=== PATIENT | male | born 1960 | race Caucasian/White ===

== ENCOUNTER 2016-07-24 19:47 | Observation (INO) | payer OTHER ==
[~2016-07-24] VITALS: Ht 180.3 cm; Wt 96.0 kg
[~2016-07-24 19:47] MED LIST: ACETAMINOPHEN500 MG PO; ADVAIR 250/501 DISK IH; ADVAIR HFA120 INHALA IH; ALL DAY ALLERGY10 M2 PO; ANTIFUNGAL15 G1 TP; ASMANEX TW200 MICRO1 IH; ASMANEX TW200 MICROG IH; ASPIR 8181 M1 PO; ASPIR-LOW81 M1 PO; ASPIRIN81 M2 PO; BAYER CHILDREN'81 M1 PO; BLOOD PRESSURE PILL; CETIRIZINE HCL10 M2 PO; CHOLESTEROL PILL; DESYREL100 MG PO; DIFLUCAN150 MG PO; INDERAL40 MG PO; LANTUS 10100 UNITS/ SC; LANTUS 10100 UNITS/ SQ; LANTUS 3 M100 UNITS1 SC; LANTUS100 UNIT/1 IJ; LANTUS100 UNIT/1 SQ; LISINOPRIL20 MG PO; LISINOPRIL30 MG PO; LYRICA50 MG PO; METFORMIN HCL1000 M1 PO; METFORMIN HCL500 MG PO; NOVOLOG 10100 UNITS/ SC; NOVOLOG PE100 UNITS/ SC; NOVOLOG100 UNIT/1 SQ; NOVOLOG100 UNIT/2 IJ; NOVOLOG100 UNIT/2 SQ; NYSTATIN15 GM TP; PERCOCET 5/31 TABLET PO; PRAVACHOL40 MG PO; PRAVASTATIN SOD80 MG PO; PREVACID30 MG PO; PROPRANOLOL HCL PO; PROPRANOLOL HCL40 MG PO; QUETIAPINE FUMA50 MG PO; RANITIDINE HCL150 M1 PO; RANITIDINE HCL150 MG PO; REQUIP0.25 MG PO; SERTRALINE HCL100 MG PO; TRAMADOL HCL50 MG PO; TRICOR145 MG PO; TRILIPIX45 MG PO; VENTOLIN HFA18 GM IH; VICODIN,LORT1 TABLET PO; ZANTAC150 M1 PO; ZESTRIL,PRINIVI10 MG PO; ZITHROMAX250 MG PO; ZYRTEC10 M2 PO; Zithromax PO
[2016-07-24 21:12] LABS: HEMATOCRIT 44.4 % (38.0-50.0); MCH 29.8 PG (29.0-34.0); MCHC 36.9 G/DL (30.0-36.0); MCV 80.6 FL (86-99); MEAN PLAT.VOLUME 9.6 uM^3 (9.0-12.4); PLATELET COUNT 149 K/uL (156-360); RBC DIS.WIDTH-CV 12.9 % (11.8-14.6); RBC DIS.WIDTH-SD 37.2 % (39-53); RED BLOOD COUNT 5.51 M/uL (4.00-5.50); WHITE BLOOD COUNT 5.9 K/uL (4.1-10.2)
[2016-07-24 21:21] LABS: CHLORIDE 94 mEq/L (99-109); POTASSIUM 4.4 mEq/L (3.7-5.4); SODIUM 129 mEq/L (136-147)
[2016-07-24 21:24] LABS: ANION GAP 13 MEQ/L (2-14)
[2016-07-24 21:26] LABS: GFR ESTIMATE (CALCULATED) 39 mL/min/
[2016-07-24 21:27] LABS: UREA NITROGEN (BUN) 25 mg/dL (9-23)
[2016-07-24 21:34] LABS: INTER. NORMALIZED RATIO 1.1; PROTHROMBIN TIME 10.7 (9.2-11.2)
[2016-07-24 21:36] LABS: ERTH.SED.RATE 33 MM/HR (0-20)
[2016-07-24 21:37] LABS: GLUCOSE 599 mg/dL (70-99)
[2016-07-25] MEDS ORDERED: LYRICA100 MG PO (00:52)
[2016-07-25] MEDS ORDERED: INDERAL XL80 MG PO (00:53)
[2016-07-25] MEDS ORDERED: OMEPRAZOLE40 M1 PO (00:55)
[2016-07-25 01:40] LABS: POINT-OF-CARE METER ID UU14100415
[2016-07-25 02:42] LABS: HDL CHOLESTEROL 24 MG/DL (Desirable>=40); NON-HDL CHOLESTEROL 262 mg/dL (Desirable<160); TOTAL CHOLESTEROL 286 mg/dL (Desirable<200); TRIGLYCERIDES 807 MG/DL (Normal: <150)
[2016-07-25 05:35] LABS: HEMATOCRIT 45.3 % (38.0-50.0); MCH 29.4 PG (29.0-34.0); MCV 81.6 FL (86-99); MEAN PLAT.VOLUME 9.9 uM^3 (9.0-12.4); PLATELET COUNT 157 K/uL (156-360); RBC DIS.WIDTH-CV 12.9 % (11.8-14.6); RBC DIS.WIDTH-SD 38.2 % (39-53); RED BLOOD COUNT 5.55 M/uL (4.00-5.50); WHITE BLOOD COUNT 5.2 K/uL (4.1-10.2)
[2016-07-25 05:44] LABS: CHLORIDE 101 mEq/L (99-109); POTASSIUM 4.1 mEq/L (3.7-5.4); SODIUM 134 mEq/L (136-147)
[2016-07-25 05:46] LABS: GLUCOSE 497 mg/dL (70-99)
[2016-07-25 05:47] LABS: ANION GAP 11 MEQ/L (2-14)
[2016-07-25 05:50] LABS: GFR ESTIMATE (CALCULATED) 39 mL/min/
[2016-07-25 05:51] LABS: UREA NITROGEN (BUN) 24 mg/dL (9-23)
[2016-07-25 06:57] LABS: Estimated Average Glucose 401 mg/dL (70-123)
[2016-07-25 07:15] LABS: HEMOGLOBIN A1c (GLYCOHEMOGLOB) 15.6 % HGB (Below 5.7)
[2016-07-25 10:21] LABS: POINT-OF-CARE METER ID UU14100415
[2016-07-25 10:21] LABS: POINT-OF-CARE METER ID UU14100415
[2016-07-25 10:21] LABS: POINT-OF-CARE METER ID UU14100415
[2016-07-25 10:32] LABS: POINT-OF-CARE METER ID UU14100415; POINT-OF-CARE USER ID 611181311
[2016-07-25 13:11] LABS: POINT-OF-CARE METER ID UU14100415
[2016-07-25 16:55] VITALS: BP 153/83
[2016-07-25 19:39] LABS: POINT-OF-CARE METER ID UU14174225
[2016-07-25 23:34] VITALS: BP 148/81
[2016-07-26 04:15] VITALS: BP 133/70
[2016-07-26 07:43] VITALS: BP 134/75
[2016-07-26 08:52] LABS: POINT-OF-CARE METER ID UU14174225
[2016-07-26 11:06] VITALS: BP 131/67
[2016-07-26 12:10] LABS: POINT-OF-CARE METER ID UU14174225
[2016-07-26 12:55] LABS: POINT-OF-CARE METER ID UU14174225
[2016-07-26 12:55] LABS: POINT-OF-CARE METER ID UU14100415
[2016-07-26 15:35] VITALS: BP 129/89
[2016-07-26 20:08] VITALS: BP 151/84
[2016-07-27] VITALS: BP 153/88
[2016-07-27 04:00] VITALS: BP 147/83
[2016-07-27 08:44] VITALS: BP 118/73
[2016-07-27 12:26] VITALS: BP 133/82
[2016-07-27 14:44] VITALS: BP 158/79
[2016-07-27 16:30] LABS: POINT-OF-CARE METER ID UU14174225
[2016-07-27 20:25] VITALS: BP 136/64
[2016-07-27 21:43] LABS: POINT-OF-CARE METER ID UU14174225
[2016-07-28] VITALS: BP 160/95
[2016-07-28 03:12] VITALS: BP 159/94
[2016-07-28 06:59] LABS: HEMATOCRIT 51.7 % (38.0-50.0); MCH 29.8 PG (29.0-34.0); MCHC 35.6 G/DL (30.0-36.0); MCV 83.8 FL (86-99); MEAN PLAT.VOLUME 9.9 uM^3 (9.0-12.4); PLATELET COUNT 172 K/uL (156-360); RBC DIS.WIDTH-SD 38.5 % (39-53); RED BLOOD COUNT 6.17 M/uL (4.00-5.50)
[2016-07-28 07:04] LABS: ANION GAP 11 MEQ/L (2-14); CHLORIDE 103 MEQ/L (99-109); GFR ESTIMATE (CALCULATED) > 59 mL/min/; POTASSIUM 3.4 MEQ/L (3.7-5.4); SAMPLE HEMOLYSIS CHECK 0; SAMPLE ICTERIC CHECK 0; SAMPLE LIPEMIA CHECK 0; SODIUM 138 MEQ/L (136-147); UREA NITROGEN (BUN) 15 mg/dL (9-23)
[2016-07-28 07:05] LABS: GLUCOSE 38 mg/dL (70-99)
[2016-07-28 07:41] VITALS: BP 121/84
[2016-07-28 12:09] LABS: POINT-OF-CARE METER ID UU14174225
[2016-07-28 12:35] VITALS: BP 143/82
[2016-07-28 16:00] VITALS: BP 139/83
[2016-07-28 17:20] LABS: POINT-OF-CARE METER ID UU14174225
[2016-07-29 00:09] VITALS: BP 121/69
[2016-07-29 07:27] VITALS: BP 130/85
== END 2016-07-29 13:03 | disposition home or self-care (01) ==
LOC: EME 19:47 → 5SOUTH 07-25 01:28 → EDOF 07-25 01:28 → 5SOUTH 07-25 16:32
PROVIDERS: Emergency Medicine; Hospitalist; Internal Medicine; Nurse Practitioner Adult Health
DX: R51 Headache (principal); R20.0 Anesthesia of skin; R20.2 Paresthesia of skin; R47.9 Unspecified speech disturbances; R42 Dizziness and giddiness; E11.65 Type 2 diabetes mellitus with hyperglycemia; E11.22 Type 2 diabetes mellitus with diabetic chronic kidney disease; I12.9 Hypertensive chronic kidney disease with stage 1 through stage 4 chronic kidney disease, or unspecified chronic kidney disease; E87.1 Hypo-osmolality and hyponatremia; N17.9 Acute kidney failure, unspecified; N18.3 Chronic kidney disease, stage 3 (moderate); E86.0 Dehydration; E66.9 Obesity, unspecified; Z68.29 Body mass index [BMI] 29.0-29.9, adult; E78.5 Hyperlipidemia, unspecified; I25.10 Atherosclerotic heart disease of native coronary artery without angina pectoris; Z98.61 Coronary angioplasty status; D69.6 Thrombocytopenia, unspecified; Z79.4 Long term (current) use of insulin; E11.40 Type 2 diabetes mellitus with diabetic neuropathy, unspecified; G25.81 Restless legs syndrome; Z98.1 Arthrodesis status; Z87.891 Personal history of nicotine dependence
CPT/HCPCS: 70450; 70544; 70551; 71020; 80048; 80061; 82948; 83036; 85027; 85610; 85651; 92523 GN; 93005; 94640; 94640 76; 97530 GO; 99281; 99285; G0378; J1644; J1815; J2930; J7030; J7040

== ENCOUNTER 2017-02-09 07:09 | Emergency (ER) | payer OTHER ==
[~2017-02-09 07:09] MED LIST changes: +INDERAL XL80 MG PO; +LYRICA100 MG PO; +OMEPRAZOLE40 M1 PO
[2017-02-09] MEDS ORDERED: NEURONTIN300 MG PO (08:26)
[2017-02-09 09:08] VITALS: BP 157/95
== END 2017-02-09 09:09 | disposition home or self-care (01) ==
LOC: EME 07:09
DX: E11.42 Type 2 diabetes mellitus with diabetic polyneuropathy (principal); I12.9 Hypertensive chronic kidney disease with stage 1 through stage 4 chronic kidney disease, or unspecified chronic kidney disease; N18.9 Chronic kidney disease, unspecified; E11.22 Type 2 diabetes mellitus with diabetic chronic kidney disease; Z79.4 Long term (current) use of insulin; J44.9 Chronic obstructive pulmonary disease, unspecified; E78.5 Hyperlipidemia, unspecified; K21.9 Gastro-esophageal reflux disease without esophagitis; G89.29 Other chronic pain; M54.9 Dorsalgia, unspecified; F32.9 Major depressive disorder, single episode, unspecified; Z79.82 Long term (current) use of aspirin

== ENCOUNTER 2017-03-10 22:04 | Emergency (ER) | payer OTHER ==
[~2017-03-10] VITALS: Ht 177.8 cm; Wt 92.8 kg
[~2017-03-10 22:04] MED LIST changes: +NEURONTIN300 MG PO
[2017-03-10] MEDS ORDERED: NAFTIFINE HCL45 GM TP (23:59)
[2017-03-11] MEDS ORDERED: PREDNISONE20 MG PO (00:11)
[2017-03-11] MEDS ORDERED: VISTARIL50 MG PO (00:11)
[2017-03-11 00:39] VITALS: BP 172/98
== END 2017-03-11 00:41 | disposition home or self-care (01) ==
LOC: EME 22:04 → RME 22:04
DX: L25.9 Unspecified contact dermatitis, unspecified cause (principal); B35.6 Tinea cruris; F41.9 Anxiety disorder, unspecified; F43.0 Acute stress reaction; I12.9 Hypertensive chronic kidney disease with stage 1 through stage 4 chronic kidney disease, or unspecified chronic kidney disease; E11.22 Type 2 diabetes mellitus with diabetic chronic kidney disease; N18.9 Chronic kidney disease, unspecified; Z79.4 Long term (current) use of insulin; Z86.73 Personal history of transient ischemic attack (TIA), and cerebral infarction without residual deficits; Z87.442 Personal history of urinary calculi; Z87.891 Personal history of nicotine dependence
CPT/HCPCS: 99281; 99283; J7512; Q0177

== ENCOUNTER 2017-04-12 00:51 | Emergency (ER) | payer OTHER ==
[~2017-04-12] VITALS: Ht 177.8 cm; Wt 91.1 kg
[~2017-04-12 00:51] MED LIST changes: +NAFTIFINE HCL45 GM TP; +PREDNISONE20 MG PO; +VISTARIL50 MG PO
[2017-04-12 01:36] LABS: HEMATOCRIT 40.6 % (38.0-50.0); MCH 29.7 PG (29.0-34.0); MCHC 36.7 G/DL (30.0-36.0); MEAN PLAT.VOLUME 9.5 uM^3 (9.0-12.4); PLATELET COUNT 171 K/uL (156-360); RBC DIS.WIDTH-CV 13.3 % (11.8-14.6); RBC DIS.WIDTH-SD 38.6 % (39-53); RED BLOOD COUNT 5.01 M/uL (4.00-5.50); WHITE BLOOD COUNT 5.1 K/uL (4.1-10.2)
[2017-04-12 01:39] LABS: ADD MIUA? YES; BILIRUBIN NEGATIVE; BLOOD SMALL; COLOR STRAW ((YELLOW)); GLUCOSE (STRIP) >=500; KETONES NEGATIVE; LEUKOCYTES NEGATIVE; NITRITE NEGATIVE; PROTEIN (STRIP) 100; SPECIFIC GRAVITY 1.022 (1.000-1.030); UROBILINOGEN 0.2 MG/DL (0.2-1.0)
[2017-04-12 01:41] LABS: BACTERIA NONE SEEN /HPF; EPITHELIAL CELLS NONE SEEN /HPF; MUCUS NONE SEEN /LPF; RED BLOOD CELLS 0-5 /HPF (0-5); UCUL ADDED? NO; WHITE BLOOD CELLS 0-5 /HPF (0-5)
[2017-04-12 01:45] LABS: CHLORIDE 97 mEq/L (99-109); POTASSIUM 3.5 mEq/L (3.7-5.4); SODIUM 132 mEq/L (136-147)
[2017-04-12 01:48] LABS: ANION GAP 9 MEQ/L (2-14)
[2017-04-12 01:50] LABS: GFR ESTIMATE (CALCULATED) 51 mL/min/
[2017-04-12 01:51] LABS: UREA NITROGEN (BUN) 17 mg/dL (9-23)
[2017-04-12 01:53] LABS: GLUCOSE 441 mg/dL (70-99)
[2017-04-12] MEDS ORDERED: [UNRECOGNIZED DRUG - OTHER] TP (02:16)
[2017-04-12 02:29] LABS: CARBON DIOXIDE (BICARBONATE) 29.9 MEQ/L (20-31)
[2017-04-12 03:16] VITALS: BP 169/90
[2017-04-12 03:24] LABS: POINT-OF-CARE METER ID UU13113747
== END 2017-04-12 03:22 | disposition home or self-care (01) ==
LOC: EME 00:51
PROVIDERS: Emergency Medicine
DX: B37.42 Candidal balanitis (principal); E11.65 Type 2 diabetes mellitus with hyperglycemia; I12.9 Hypertensive chronic kidney disease with stage 1 through stage 4 chronic kidney disease, or unspecified chronic kidney disease; N18.9 Chronic kidney disease, unspecified; E11.22 Type 2 diabetes mellitus with diabetic chronic kidney disease; E78.5 Hyperlipidemia, unspecified; K21.9 Gastro-esophageal reflux disease without esophagitis; J44.9 Chronic obstructive pulmonary disease, unspecified; F32.9 Major depressive disorder, single episode, unspecified; Z79.4 Long term (current) use of insulin; Z87.891 Personal history of nicotine dependence
CPT/HCPCS: 80048; 81003; 82010; 82803; 82948; 85027; 99281; 99284; J7030

== ENCOUNTER 2017-07-12 20:06 | Emergency (ER) | payer OTHER ==
[~2017-07-12] VITALS: Ht 180.3 cm; Wt 93.4 kg
[~2017-07-12 20:06] MED LIST changes: +[UNRECOGNIZED DRUG - OTHER] TP
[2017-07-12 22:03] LABS: HEMATOCRIT 43.1 % (38.0-50.0); MCHC 37.1 G/DL (30.0-36.0); MCV 83.5 FL (86-99); PLATELET COUNT 190 K/uL (156-360); RBC DIS.WIDTH-CV 12.6 % (11.8-14.6); RBC DIS.WIDTH-SD 38.1 % (39-53); RED BLOOD COUNT 5.16 M/uL (4.00-5.50); WHITE BLOOD COUNT 6.3 K/uL (4.1-10.2)
[2017-07-12 22:12] LABS: ALBUMIN 3.3 g/dL (3.2-4.8)
[2017-07-12 22:13] LABS: CHLORIDE 94 mEq/L (99-109); POTASSIUM 4.7 mEq/L (3.7-5.4); SODIUM 130 mEq/L (136-147)
[2017-07-12 22:15] LABS: TOTAL PROTEIN 6.5 g/dL (6.4-8.3)
[2017-07-12 22:17] LABS: TOTAL BILIRUBIN 0.8 mg/dL (0.0-1.0)
[2017-07-12 22:18] LABS: ALKALINE PHOSPHATASE 91 IU/L (3-129)
[2017-07-12 22:19] LABS: CREATININE 1.8 mg/dL (0.6-1.3); GFR ESTIMATE (CALCULATED) 41 mL/min/ (58.99-99999)
[2017-07-12 22:20] LABS: AST (GOT) 15 IU/L (2-34); UREA NITROGEN (BUN) 22 mg/dL (9-23)
[2017-07-12 22:21] LABS: ALT (GPT) 11 IU/L (3-49)
[2017-07-12 22:22] LABS: GLUCOSE 634 mg/dL (70-99)
[2017-07-12 23:17] LABS: MAGNESIUM 2.1 mg/dL (1.3-2.7)
[2017-07-12 23:22] LABS: PHOSPHORUS 3.4 mg/dL (2.5-4.9)
[2017-07-12 23:25] LABS: LIPASE 71 U/L (1.0-51.0)
[2017-07-12 23:46] LABS: CARBON DIOXIDE (BICARBONATE) 33.7 MEQ/L (20-31)
[2017-07-13 01:25] LABS: APPEARANCE CLEAR ((CLEAR)); BILIRUBIN NEGATIVE; BLOOD NEGATIVE; COLOR STRAW ((YELLOW)); GLUCOSE (STRIP) >=500; KETONES NEGATIVE; LEUKOCYTES NEGATIVE; NITRITE NEGATIVE; PROTEIN (STRIP) 100; SPECIFIC GRAVITY 1.024 (1.000-1.030); UROBILINOGEN 0.2 MG/DL (0.2-1.0)
[2017-07-13 01:32] LABS: BACTERIA NONE SEEN /HPF; EPITHELIAL CELLS NONE SEEN /HPF; HYALINE CASTS 0-5 /LPF; MUCUS NONE SEEN /LPF; RED BLOOD CELLS 0-5 /HPF (0-5); UCUL ADDED? NO; WHITE BLOOD CELLS 0-5 /HPF (0-5)
[2017-07-13] MEDS ORDERED: NORCO 5/3251 TABLET PO (02:27)
[2017-07-13 06:23] VITALS: BP 145/74
== END 2017-07-13 06:26 | disposition home or self-care (01) ==
LOC: EME 20:06
PROVIDERS: Emergency Medicine
DX: E11.65 Type 2 diabetes mellitus with hyperglycemia (principal); I13.10 Hypertensive heart and chronic kidney disease without heart failure, with stage 1 through stage 4 chronic kidney disease, or unspecified chronic kidney disease; E11.22 Type 2 diabetes mellitus with diabetic chronic kidney disease; N18.9 Chronic kidney disease, unspecified; Z91.14 Patient's other noncompliance with medication regimen; E78.5 Hyperlipidemia, unspecified; J44.9 Chronic obstructive pulmonary disease, unspecified; G89.29 Other chronic pain; M54.9 Dorsalgia, unspecified; K21.9 Gastro-esophageal reflux disease without esophagitis; F32.9 Major depressive disorder, single episode, unspecified; Z87.891 Personal history of nicotine dependence; Z79.4 Long term (current) use of insulin; Z79.82 Long term (current) use of aspirin; Z87.442 Personal history of urinary calculi
CPT/HCPCS: 71046; 80053; 81003; 82803; 82948; 83690; 83735; 84100; 85027; 93005; 99281; 99285; J0360; J7030

== ENCOUNTER 2017-08-12 14:44 | Emergency (ER) | payer OTHER ==
[~2017-08-12] VITALS: Ht 180.3 cm; Wt 95.2 kg
[~2017-08-12 14:44] MED LIST changes: +NORCO 5/3251 TABLET PO
[2017-08-12 16:52] LABS: HEMATOCRIT 40.1 % (38.0-50.0); MCH 31.3 PG (29.0-34.0); MCHC 37.4 G/DL (30.0-36.0); MCV 83.7 FL (86-99); PLATELET COUNT 192 K/uL (156-360); RBC DIS.WIDTH-CV 12.9 % (11.8-14.6); RED BLOOD COUNT 4.79 M/uL (4.00-5.50); WHITE BLOOD COUNT 5.3 K/uL (4.1-10.2)
[2017-08-12 17:01] LABS: CHLORIDE 102 mEq/L (99-109); POTASSIUM 3.6 mEq/L (3.7-5.4); SODIUM 135 mEq/L (136-147)
[2017-08-12 17:02] LABS: GLUCOSE 304 mg/dL (70-99)
[2017-08-12 17:06] LABS: CREATININE 1.5 mg/dL (0.6-1.3); GFR ESTIMATE (CALCULATED) 51 mL/min/ (58.99-99999)
[2017-08-12 17:07] LABS: UREA NITROGEN (BUN) 14 mg/dL (9-23)
[2017-08-12] MEDS ORDERED: FUTURO RESTORI1 EACH MC (17:42)
[2017-08-12 18:02] VITALS: BP 203/98
== END 2017-08-12 18:07 | disposition home or self-care (01) ==
LOC: EME 14:44
PROVIDERS: Physician Assistant
DX: R60.0 Localized edema (principal); E11.65 Type 2 diabetes mellitus with hyperglycemia; I12.9 Hypertensive chronic kidney disease with stage 1 through stage 4 chronic kidney disease, or unspecified chronic kidney disease; E11.22 Type 2 diabetes mellitus with diabetic chronic kidney disease; N18.9 Chronic kidney disease, unspecified; Z79.4 Long term (current) use of insulin; T50.996A Underdosing of other drugs, medicaments and biological substances, initial encounter; Z91.128 Patient's intentional underdosing of medication regimen for other reason; E78.5 Hyperlipidemia, unspecified; J44.9 Chronic obstructive pulmonary disease, unspecified; Z79.82 Long term (current) use of aspirin; F32.9 Major depressive disorder, single episode, unspecified; K21.9 Gastro-esophageal reflux disease without esophagitis; Z87.891 Personal history of nicotine dependence
CPT/HCPCS: 80048; 85027; 99281; 99284

== ENCOUNTER 2017-08-28 16:14 | Emergency (ER) | payer OTHER ==
[~2017-08-28] VITALS: Ht 180.3 cm; Wt 91.3 kg
[~2017-08-28 16:14] MED LIST changes: +FUTURO RESTORI1 EACH MC
[2017-08-28 19:20] LABS: ALBUMIN 3.2 G/DL (3.2-4.8); CHLORIDE 102 MEQ/L (99-109); POTASSIUM 4.6 MEQ/L (3.7-5.4); SODIUM 134 MEQ/L (136-147); TOTAL BILIRUBIN 0.7 MG/DL (0.0-1.0)
[2017-08-28 19:28] LABS: TROP-I INTERPRETATION NEGATIVE; TROPONIN-I < 0.01 ng/mL (0.0-0.30)
[2017-08-28 19:34] LABS: ALKALINE PHOSPHATASE 81 IU/L (3-129); ALT (GPT) 10 IU/L (3-49); AST (GOT) 26 IU/L (2-34); CREATININE 1.5 MG/DL (0.6-1.3); GFR ESTIMATE (CALCULATED) 51 mL/min/ (58.99-99999); GLUCOSE 346 mg/dL (70-99); TOTAL PROTEIN 5.8 G/DL (6.4-8.3); UREA NITROGEN (BUN) 24 mg/dL (9-23)
[2017-08-28 19:44] LABS: BASOPHIL (%) 0.4 % (0-1); EOSINOPHIL (%) 2.4 % (0-5); EOSINOPHIL COUNT 0.1 K/uL (0-0.3); HEMATOCRIT 40.2 % (38.0-50.0); HEMOGLOBIN 15.1 G/DL (12.5-16.6); IMMATURE GRANULOCYTE (%) 0.4 % (0.0-0.7); LYMPHOCYTE (%) 31.5 % (15-42); LYMPHOCYTE COUNT 1.6 K/uL (1.0-2.8); MCH 31.3 PG (29.0-34.0); MCHC 37.6 G/DL (30.0-36.0); MCV 83.2 FL (86-99); MONOCYTE (%) 9.5 % (3-12); MONOCYTE COUNT 0.5 K/uL (0-0.8); NEUTROPHIL (%) 55.8 % (45-76); NEUTROPHIL COUNT 2.8 K/uL (1.8-6.4); NRBC (%) 0.4 /100 WBC (0-0); PLATELET COUNT 196 K/uL (156-360); RBC DIS.WIDTH-SD 38.7 % (39-53); RED BLOOD COUNT 4.83 M/uL (4.00-5.50)
[2017-08-28] MEDS ORDERED: LYRICA100 MG PO (23:02)
[2017-08-28] MEDS ORDERED: ADVAIR HFA120 INHALA IH (23:02)
[2017-08-28] MEDS ORDERED: PRAVACHOL80 MG PO (23:02)
[2017-08-28] MEDS ORDERED: QUETIAPINE FUMA50 MG PO (23:02)
[2017-08-28] MEDS ORDERED: INDERAL80 MG PO (23:02)
[2017-08-28] MEDS ORDERED: LISINOPRIL30 MG PO (23:02)
[2017-08-28] MEDS ORDERED: SERTRALINE HCL100 MG PO (23:02)
[2017-08-28] MEDS ORDERED: ZANTAC150 MG PO (23:02)
[2017-08-28 23:07] VITALS: BP 179/92
== END 2017-08-28 23:08 | disposition home or self-care (01) ==
LOC: EME 16:14
PROVIDERS: Emergency Medicine
DX: M79.604 Pain in right leg (principal); M79.605 Pain in left leg; T50.906A Underdosing of unspecified drugs, medicaments and biological substances, initial encounter; Z91.128 Patient's intentional underdosing of medication regimen for other reason; I12.9 Hypertensive chronic kidney disease with stage 1 through stage 4 chronic kidney disease, or unspecified chronic kidney disease; E11.22 Type 2 diabetes mellitus with diabetic chronic kidney disease; N18.9 Chronic kidney disease, unspecified; Z79.4 Long term (current) use of insulin; E78.5 Hyperlipidemia, unspecified; J44.9 Chronic obstructive pulmonary disease, unspecified; F32.9 Major depressive disorder, single episode, unspecified; K21.9 Gastro-esophageal reflux disease without esophagitis; Z79.82 Long term (current) use of aspirin; Z87.891 Personal history of nicotine dependence
CPT/HCPCS: 71046; 80053; 82948; 83880; 84484; 85025; 93005; 99281; 99285; J1885; J2765

== ENCOUNTER 2017-08-31 23:10 | Emergency (ER) | payer OTHER ==
[~2017-08-31] VITALS: Ht 180.3 cm; Wt 100.9 kg
[~2017-08-31 23:10] MED LIST changes: +INDERAL80 MG PO; +PRAVACHOL80 MG PO; +ZANTAC150 MG PO
[2017-08-31 23:48] LABS: HEMOGLOBIN 13.7 G/DL (12.5-16.6); MCH 30.6 PG (29.0-34.0); MCV 82.6 FL (86-99); PLATELET COUNT 151 K/uL (156-360); RBC DIS.WIDTH-CV 12.5 % (11.8-14.6); RBC DIS.WIDTH-SD 37.4 % (39-53); RED BLOOD COUNT 4.48 M/uL (4.00-5.50); WHITE BLOOD COUNT 5.1 K/uL (4.1-10.2)
[2017-09-01 00:02] LABS: CHLORIDE 100 mEq/L (99-109); POTASSIUM 4.2 mEq/L (3.7-5.4); SODIUM 132 mEq/L (136-147)
[2017-09-01 00:04] LABS: TOTAL PROTEIN 5.5 g/dL (6.4-8.3)
[2017-09-01 00:08] LABS: ALKALINE PHOSPHATASE 92 IU/L (3-129); CREATININE 1.8 mg/dL (0.6-1.3); GFR ESTIMATE (CALCULATED) 41 mL/min/ (58.99-99999)
[2017-09-01 00:09] LABS: UREA NITROGEN (BUN) 25 mg/dL (9-23)
[2017-09-01 00:10] LABS: AST (GOT) 14 IU/L (2-34)
[2017-09-01 00:11] LABS: ALT (GPT) 13 IU/L (3-49)
[2017-09-01 00:16] LABS: GLUCOSE 490 mg/dL (70-99)
[2017-09-01 01:12] LABS: TROP-I INTERPRETATION NEGATIVE; TROPONIN-I < 0.01 ng/mL (0.0-0.30)
[2017-09-01 07:52] LABS: APPEARANCE CLEAR ((CLEAR)); BILIRUBIN NEGATIVE; BLOOD NEGATIVE; COLOR STRAW ((YELLOW)); GLUCOSE (STRIP) >=500; KETONES NEGATIVE; LEUKOCYTES NEGATIVE; NITRITE NEGATIVE; PROTEIN (STRIP) 100; SPECIFIC GRAVITY 1.008 (1.000-1.030); UROBILINOGEN 0.2 MG/DL (0.2-1.0)
[2017-09-01] MEDS ORDERED: PRAVACHOL80 MG PO (07:58)
[2017-09-01] MEDS ORDERED: NOVOLOG 10100 UNITS/ SC (07:59)
[2017-09-01 08:01] LABS: BACTERIA RARE /HPF; EPITHELIAL CELLS RARE /HPF; HYALINE CASTS 0-5 /LPF; MUCUS TRACE /LPF; RED BLOOD CELLS 0-5 /HPF (0-5); UCUL ADDED? NO; WHITE BLOOD CELLS 0-5 /HPF (0-5)
[2017-09-01 08:27] VITALS: BP 160/84
== END 2017-09-01 08:32 | disposition home or self-care (01) ==
LOC: EME 23:10
PROVIDERS: Emergency Medicine
DX: E11.65 Type 2 diabetes mellitus with hyperglycemia (principal); Z79.4 Long term (current) use of insulin; I12.9 Hypertensive chronic kidney disease with stage 1 through stage 4 chronic kidney disease, or unspecified chronic kidney disease; E11.22 Type 2 diabetes mellitus with diabetic chronic kidney disease; N18.9 Chronic kidney disease, unspecified; J44.9 Chronic obstructive pulmonary disease, unspecified; E78.5 Hyperlipidemia, unspecified; F32.9 Major depressive disorder, single episode, unspecified; K21.9 Gastro-esophageal reflux disease without esophagitis; Z87.891 Personal history of nicotine dependence
CPT/HCPCS: 71046; 80053; 81003; 82010; 82800; 82948; 83880; 84484; 85027; 93005; 99281; 99285; J1940; J7040

== ENCOUNTER 2017-09-18 15:50 | Emergency (ER) | payer OTHER ==
[~2017-09-18] VITALS: Ht 180.3 cm; Wt 94.1 kg
[2017-09-18 17:58] LABS: APPEARANCE CLEAR ((CLEAR)); BILIRUBIN NEGATIVE; BLOOD NEGATIVE; COLOR COLORLESS ((YELLOW)); GLUCOSE (STRIP) >=500; KETONES NEGATIVE; LEUKOCYTES NEGATIVE; NITRITE NEGATIVE; PROTEIN (STRIP) 100; SPECIFIC GRAVITY 1.022 (1.000-1.030); UROBILINOGEN 0.2 MG/DL (0.2-1.0)
[2017-09-18 18:00] LABS: BACTERIA NONE SEEN /HPF; EPITHELIAL CELLS NONE SEEN /HPF; MUCUS NONE SEEN /LPF; RED BLOOD CELLS 0-5 /HPF (0-5); UCUL ADDED? NO; WHITE BLOOD CELLS 0-5 /HPF (0-5)
[2017-09-18] MEDS ORDERED: BACTRIM,SEPT1 TABLET PO (18:57)
[2017-09-18 19:19] VITALS: BP 197/105
== END 2017-09-18 19:31 | disposition home or self-care (01) ==
LOC: EME 15:50
DX: N39.0 Urinary tract infection, site not specified (principal); I12.9 Hypertensive chronic kidney disease with stage 1 through stage 4 chronic kidney disease, or unspecified chronic kidney disease; N18.9 Chronic kidney disease, unspecified; J44.9 Chronic obstructive pulmonary disease, unspecified; E11.9 Type 2 diabetes mellitus without complications; E78.5 Hyperlipidemia, unspecified; G89.29 Other chronic pain; M54.9 Dorsalgia, unspecified; K21.9 Gastro-esophageal reflux disease without esophagitis; F32.9 Major depressive disorder, single episode, unspecified; Z79.4 Long term (current) use of insulin; Z79.82 Long term (current) use of aspirin; Z87.891 Personal history of nicotine dependence; Z87.442 Personal history of urinary calculi
CPT/HCPCS: 81003; 99281; 99284

== ENCOUNTER 2017-10-25 10:45 | Observation (INO) | payer OTHER ==
[~2017-10-25] VITALS: Ht 180.3 cm; Wt 94.1 kg
[~2017-10-25 10:45] MED LIST changes: +BACTRIM,SEPT1 TABLET PO
[2017-10-25 11:12] LABS: HEMOGLOBIN 15.4 G/DL (12.5-16.6); MCHC 36.7 G/DL (30.0-36.0); MCV 84.7 FL (86-99); PLATELET COUNT 183 K/uL (156-360); RBC DIS.WIDTH-CV 13.1 % (11.8-14.6); RBC DIS.WIDTH-SD 40.6 % (39-53); RED BLOOD COUNT 4.96 M/uL (4.00-5.50)
[2017-10-25 11:23] LABS: CHLORIDE 98 mEq/L (99-109); POTASSIUM 4.6 mEq/L (3.7-5.4); SODIUM 133 mEq/L (136-147)
[2017-10-25 11:29] LABS: CREATININE 1.8 mg/dL (0.6-1.3); GFR ESTIMATE (CALCULATED) 41 mL/min/ (58.99-99999)
[2017-10-25 11:30] LABS: UREA NITROGEN (BUN) 23 mg/dL (9-23)
[2017-10-25 11:32] LABS: TROP-I INTERPRETATION NEGATIVE; TROPONIN-I < 0.01 ng/mL (0.0-0.30)
[2017-10-25 11:33] LABS: GLUCOSE 440 mg/dL (70-99)
[2017-10-25] MEDS ORDERED: INDERAL80 MG PO (13:59)
[2017-10-25] MEDS ORDERED: ZANTAC150 MG PO (14:00)
[2017-10-25] MEDS ORDERED: SEROQUEL50 MG PO ×2 (14:00→14:09)
[2017-10-25] MEDS ORDERED: ALEVE220 MG PO (14:01)
[2017-10-25] MEDS ORDERED: ASMANEX110 MCG IH (14:03)
[2017-10-25] MEDS ORDERED: TRICON CAPSULE1 EACH PO (14:03)
[2017-10-25] MEDS ORDERED: LYRICA50 MG PO (14:04)
[2017-10-25] MEDS ORDERED: ALL DAY ALLERGY10 M3 PO (14:04)
[2017-10-25] MEDS ORDERED: INDERAL40 MG PO (14:05)
[2017-10-25] MEDS ORDERED: LISINOPRIL30 MG PO (14:05)
[2017-10-25] MEDS ORDERED: NOVOLOG PE100 UNITS/ SC (14:07)
[2017-10-25] MEDS ORDERED: ASPIRIN81 M2 PO (14:08)
[2017-10-25] MEDS ORDERED: RANITIDINE HCL150 MG PO (14:08)
[2017-10-25] MEDS ORDERED: PRAVACHOL80 MG PO (14:08)
[2017-10-25] MEDS ORDERED: ZOLOFT50 MG PO (14:09)
[2017-10-25] MEDS ORDERED: TRAMADOL HCL50 MG PO (14:09)
[2017-10-25 14:37] LABS: D-DIMER ELISA < 150.00 ng/mLDDU (<230)
[2017-10-25 15:51] VITALS: BP 207/99
[2017-10-25 17:25] LABS: TROP-I INTERPRETATION NEGATIVE; TROPONIN-I < 0.01 ng/mL (0.0-0.30)
[2017-10-25 19:58] VITALS: BP 170/79
[2017-10-25 20:25] VITALS: BP 136/71
[2017-10-25 20:27] VITALS: BP 136/71
[2017-10-25 21:05] LABS: GLUCOSE 397 mg/dL (70-99)
[2017-10-25 23:44] LABS: TROP-I INTERPRETATION NEGATIVE; TROPONIN-I < 0.01 ng/mL (0.0-0.30)
[2017-10-25 23:45] VITALS: BP 141/75
[2017-10-26 04:20] VITALS: BP 130/66
[2017-10-26 05:57] LABS: CHLORIDE 105 MEQ/L (99-109); CREATININE 1.5 MG/DL (0.6-1.3); GFR ESTIMATE (CALCULATED) 51 mL/min/ (58.99-99999); SODIUM 139 MEQ/L (136-147); UREA NITROGEN (BUN) 20 mg/dL (9-23)
[2017-10-26 05:59] LABS: GLUCOSE 171 mg/dL (70-99); POTASSIUM 3.6 MEQ/L (3.7-5.4)
[2017-10-26 07:55] VITALS: BP 177/91
[2017-10-26] MEDS ORDERED: NITROSTAT0.4 MG SL (07:59)
[2017-10-26] MEDS ORDERED: APRESOLINE25 MG PO (08:00)
[2017-10-26 11:36] VITALS: BP 113/73
[2017-10-26] MEDS ORDERED: APRESOLINE10 MG PO (11:40)
== END 2017-10-26 11:46 | disposition home or self-care (01) ==
LOC: EME 10:45 → EDOF 13:43 → ENRESERV 13:44 → 4SOUTH 15:45 → ENPENDDIS 10-26 → 4SOUTH 10-26 11:46
PROVIDERS: Emergency Medicine; Internal Medicine; Physician Assistant Medical
DX: R07.89 Other chest pain (principal); I16.0 Hypertensive urgency; R60.0 Localized edema; I12.9 Hypertensive chronic kidney disease with stage 1 through stage 4 chronic kidney disease, or unspecified chronic kidney disease; N18.9 Chronic kidney disease, unspecified; E11.22 Type 2 diabetes mellitus with diabetic chronic kidney disease; E78.5 Hyperlipidemia, unspecified; K21.9 Gastro-esophageal reflux disease without esophagitis; G25.81 Restless legs syndrome; Z87.891 Personal history of nicotine dependence; E11.40 Type 2 diabetes mellitus with diabetic neuropathy, unspecified; Z98.1 Arthrodesis status; E11.65 Type 2 diabetes mellitus with hyperglycemia; Z91.14 Patient's other noncompliance with medication regimen; Z91.19 Patient's noncompliance with other medical treatment and regimen; I25.10 Atherosclerotic heart disease of native coronary artery without angina pectoris; Z79.4 Long term (current) use of insulin; Z83.3 Family history of diabetes mellitus; Z79.82 Long term (current) use of aspirin
CPT/HCPCS: 71046; 80048; 82948; 83880; 84484; 84999; 85027; 85379; 87641; 93005; 99281; 99285; G0378; J0360; J7030

== ENCOUNTER 2017-12-12 11:34 | Emergency (ER) | payer OTHER ==
[~2017-12-12] VITALS: Ht 180.3 cm; Wt 85.5 kg
[~2017-12-12 11:34] MED LIST changes: +ALEVE220 MG PO; +ALL DAY ALLERGY10 M3 PO; +APRESOLINE10 MG PO; +APRESOLINE25 MG PO; +ASMANEX110 MCG IH; +NITROSTAT0.4 MG SL; +SEROQUEL50 MG PO; +TRICON CAPSULE1 EACH PO; +ZOLOFT50 MG PO
[2017-12-12] MEDS ORDERED: BACTRIM,SEPT1 TABLET PO (12:52)
[2017-12-12 13:00] VITALS: BP 184/93
== END 2017-12-12 13:00 | disposition home or self-care (01) ==
LOC: EME 11:34
DX: L03.114 Cellulitis of left upper limb (principal); M79.642 Pain in left hand; I10 Essential (primary) hypertension; E78.5 Hyperlipidemia, unspecified; E11.9 Type 2 diabetes mellitus without complications; Z79.4 Long term (current) use of insulin; Z87.891 Personal history of nicotine dependence; Z59.0 Homelessness
CPT/HCPCS: 73130; 99281; 99283